=== PATIENT | male | born 1975 | race Caucasian/White ===

== ENCOUNTER 2016-05-16 10:15 | Emergency (ER) | payer MEDICAID ==
[~2016-05-16] VITALS: Ht 172.7 cm; Wt 67.6 kg
[~2016-05-16 10:15] MED LIST: GEMF600T3 PO; METF-312 PO
[2016-05-16 11:00] LABS: Basophils # (auto) 0 uL; Basophils % (auto) 0.5 % (0.0-2.0); Eosinophils # (auto) 0.2 uL; Eosinophils % (auto) 2.1 % (0.0-7.0); Hematocrit 38.5 % (41.0-53.0); Hemoglobin 12.5 g/dL (13.5-17.5); Lymphocytes # (auto) 2.5 uL; Lymphocytes % (auto) 25.8 % (10.0-50.0); Mean Corpuscular Hemoglobin 27.8 pg (28.0-32.0); Mean Corpuscular Hgb Conc. 32.6 g/dL (32.0-36.0); Mean Corpuscular Volume 85.2 fL (80.0-100.0); Mean Platelet Volume 7.3 fL (7.4-10.4); Monocytes # (auto) 0.5 uL; Monocytes % (auto) 5.3 % (0.0-12.0); Neutrophils # (auto) 6.4 uL; Neutrophils % (auto) 66.3 % (37.0-80.0); Platelet Count (auto) 375 10^3/uL (140-450); Red Cell Distribution Width 14.2 % (11.6-16.0); White Blood Cell 9.6 10^3/uL (4.4-10.8)
[2016-05-16 11:21] LABS: BUN/Creatinine Ratio 12.7; Bilirubin, Total 0.2 mg/dL (0.2-1.0); Calcium 9.7 mg/dL (8.5-10.1); Total Protein 9.2 g/dL (6.4-8.2)
[2016-05-16] MEDS ORDERED: METOCLOPRAMIDE HCL 5MG/ml INJ 2ml VIAL IV ONE (18:00)
[2016-05-16] MEDS ORDERED: KETOROLAC TROMETH 30 MG/ML 1ML VIAL IV ONE (18:00)
[2016-05-16] MEDS ORDERED: VANCOMYCIN 1GM/250ML D5W 250 ML IV ONE (19:00)
[2016-05-16] MEDS ORDERED: PIPERACILLIN-TAZOB 3.375GM 100 ML IV ONE (19:00)
[2016-05-17 00:48] VITALS: BP 105/61
== END 2016-05-17 01:10 | disposition home or self-care (01) ==
LOC: ER 10:15
DX: M46.46 Discitis, unspecified, lumbar region (principal); E11.65 Type 2 diabetes mellitus with hyperglycemia; F17.210 Nicotine dependence, cigarettes, uncomplicated; E78.5 Hyperlipidemia, unspecified; E11.69 Type 2 diabetes mellitus with other specified complication; M86.9 Osteomyelitis, unspecified; F32.9 Major depressive disorder, single episode, unspecified
CPT/HCPCS: 36415; 72131; 80053; 85025; 85049; 87040; 96365; 96366; 96367; 96375; 99285; J1885; J2543; J2765; J3370

== ENCOUNTER 2016-06-25 20:45 | Emergency (ER) | payer MEDICAID ==
[~2016-06-25] VITALS: Ht 177.8 cm; Wt 72.6 kg
[2016-06-25] MEDS ORDERED: SODIUM CHLORIDE 0.9% 1,000 ML IV ONE (22:59)
[2016-06-25] MEDS ORDERED: MECLIZINE HCL 25 MG TAB PO ONE (23:00)
[2016-06-25 23:58] LABS: Basophils # (auto) 0.2 uL; Basophils % (auto) 1.8 % (0.0-2.0); Eosinophils # (auto) 0.4 uL; Eosinophils % (auto) 3.5 % (0.0-7.0); Hematocrit 38.3 % (41.0-53.0); Lymphocytes # (auto) 3.7 uL; Lymphocytes % (auto) 34.7 % (10.0-50.0); Mean Corpuscular Hemoglobin 29.4 pg (28.0-32.0); Mean Corpuscular Hgb Conc. 33.9 g/dL (32.0-36.0); Mean Corpuscular Volume 86.6 fL (80.0-100.0); Mean Platelet Volume 8.1 fL (7.4-10.4); Monocytes # (auto) 0.8 uL; Monocytes % (auto) 7.3 % (0.0-12.0); Neutrophils # (auto) 5.5 uL; Neutrophils % (auto) 52.7 % (37.0-80.0); Platelet Count (auto) 272 10^3/uL (140-450); Red Cell Distribution Width 15.2 % (11.6-16.0); White Blood Cell 10.6 10^3/uL (4.4-10.8)
[2016-06-26] MEDS ORDERED: HYDROcodone-ACET 7.5/325MG TAB PO ONE
[2016-06-26 00:19] LABS: Albumin 3.5 g/dL (3.4-5.0); BUN/Creatinine Ratio 17.4; Calcium 8.5 mg/dL (8.5-10.1); Magnesium 2.5 mg/dL (1.6-2.6)
[2016-06-26 00:21] LABS: Bilirubin, Total 0.2 mg/dL (0.2-1.0); Total Protein 7.5 g/dL (6.4-8.2)
[2016-06-26 03:08] VITALS: BP 107/70
== END 2016-06-26 04:28 | disposition home or self-care (01) ==
LOC: EDBD 20:45 → ER 20:59
DX: R42 Dizziness and giddiness (principal); E11.9 Type 2 diabetes mellitus without complications; E78.5 Hyperlipidemia, unspecified; F17.210 Nicotine dependence, cigarettes, uncomplicated; M46.28 Osteomyelitis of vertebra, sacral and sacrococcygeal region; Z98.890 Other specified postprocedural states
CPT/HCPCS: 36415; 70450; 80053; 83735; 85025; 93005; 96360; 96361; 99285; J7030; J8597

== ENCOUNTER 2017-11-24 22:09 | Inpatient (IN) | payer MEDICAID ==
[~2017-11-24] VITALS: Ht 172.7 cm; Wt 70.7 kg
[~2017-11-24 22:09] MED LIST changes: +ATOR40TA52 PO; -GEMF600T3 PO; +HYDR-4072 PO; -METF-312 PO; +METF-370 PO
[2017-11-24 22:53] LABS: Basophils # (auto) 0.1 uL; Basophils % (auto) 0.9 % (0.0-2.0); Eosinophils # (auto) 0.4 uL; Eosinophils % (auto) 5.1 % (0.0-7.0); Hematocrit 43.3 % (41.0-53.0); Hemoglobin 14.8 g/dL (13.5-17.5); Lymphocytes % (auto) 34.2 % (10.0-50.0); Mean Corpuscular Hgb Conc. 34.3 g/dL (32.0-36.0); Mean Corpuscular Volume 93.3 fL (80.0-100.0); Monocytes # (auto) 0.6 uL; Monocytes % (auto) 7.2 % (0.0-12.0); Neutrophils # (auto) 4.5 uL; Neutrophils % (auto) 52.6 % (37.0-80.0); Platelet Count (auto) 193 10^3/uL (140-450); Red Blood Cells 4.64 10^6/uL (4.5-5.90); White Blood Cell 8.6 10^3/uL (4.4-10.8)
[2017-11-24 23:01] LABS: Alanine Aminotransferase 35 U/L (16-61); Albumin 3.6 g/dL (3.4-5.0); Anion Gap 7 (5-15); Aspartate Aminotransferase 15 U/L (15-37); BUN/Creatinine Ratio 13.2; Blood Urea Nitrogen 10 mg/dL (7-18); Carbon Dioxide 26 mmol/L (21-32); Chloride 111 mmol/L (98-107); GFR African American 143 mL/min; GFR Non-African American 118 mL/min; Glucose 127 mg/dL (74-106); Potassium 3.6 mmol/L (3.5-5.1); Sodium 144 mmol/L (136-145)
[2017-11-24 23:06] LABS: Alkaline Phosphatase 75 U/L (45-117); Bilirubin, Total 0.3 mg/dL (0.2-1.0); Total Protein 6.9 g/dL (6.4-8.2)
[2017-11-25 01:21] LABS: Urine WBC None Seen /hpf (0 - 3)
[2017-11-25 01:38] LABS: Urine Bacteria NONE SEEN /hpf (None Seen); Urine Blood Negative /uL (Negative); Urine Mucus FEW (None Seen); Urine Specific Gravity 1.019 (1.001-1.035)
[2017-11-25] MEDS ORDERED: NITROGLYCERIN 0.4 MG SL TAB SL PRN (05:00)
[2017-11-25] MEDS ORDERED: MORPHINE SULF INJ 2 MG/ML SYRINGE 1ML IV PRN (05:00)
[2017-11-25] MEDS ORDERED: HYDROcodone-ACET 5/325MG TAB PO PRN (06:00)
[2017-11-25] MEDS ORDERED: ACETAMINOPHEN 500 MG TAB PO PRN (06:00)
[2017-11-25 07:18] LABS: Basophils # (auto) 0.1 uL; Basophils % (auto) 0.8 % (0.0-2.0); Eosinophils # (auto) 0.4 uL; Hematocrit 40.9 % (41.0-53.0); Hemoglobin 14.1 g/dL (13.5-17.5); Lymphocytes # (auto) 2.8 uL; Mean Corpuscular Hgb Conc. 34.6 g/dL (32.0-36.0); Mean Corpuscular Volume 92.5 fL (80.0-100.0); Monocytes # (auto) 0.6 uL; Monocytes % (auto) 7.9 % (0.0-12.0); Neutrophils # (auto) 3.4 uL; Neutrophils % (auto) 47.3 % (37.0-80.0); Nucleated Red Blood Cells % 0.2 %; Platelet Count (auto) 172 10^3/uL (140-450); Red Blood Cells 4.42 10^6/uL (4.5-5.90); Red Cell Distribution Width 13.9 % (11.8-14.3); White Blood Cell 7.2 10^3/uL (4.4-10.8)
[2017-11-25] MEDS: metFORMIN HYDROCHLORIDE 500 MG TAB PO SCH ×2 (07:30→18:00)
[2017-11-25 07:40] LABS: BUN/Creatinine Ratio 12.7; Calcium 8.1 mg/dL (8.5-10.1); Potassium 3.8 mmol/L (3.5-5.1)
[2017-11-25] MEDS: CLOPIDOGREL BISULFATE 75 MG TAB PO SCH (10:02)
[2017-11-25] MEDS: METOPROLOL TARTRATE 25 MG TAB PO SCH ×2 (10:02→21:21)
[2017-11-25 18:00] VITALS: BP 106/68
[2017-11-25 22:00] VITALS: BP 106/65
[2017-11-25] MEDS ORDERED: ATORVASTATIN 20 MG TAB PO SCH (22:00)
[2017-11-26 05:00] VITALS: BP 93/54
[2017-11-26] MEDS: metFORMIN HYDROCHLORIDE 500 MG TAB PO SCH (07:00)
[2017-11-26 09:00] VITALS: BP 104/64
[2017-11-26] MEDS: METOPROLOL TARTRATE 25 MG TAB PO SCH (10:00)
[2017-11-26] MEDS: CLOPIDOGREL BISULFATE 75 MG TAB PO SCH (10:00)
[2017-11-26 11:53] VITALS: BP 104/64
[2017-11-26 13:18] VITALS: BP 94/54
[2017-11-26 13:20] VITALS: BP 108/77
== END 2017-11-26 12:50 | disposition home or self-care (01) | DRG 198 ==
LOC: ER 22:09 → TELE 22:10 → TELE-EAST 11-25 17:38
PROVIDERS: ADMIT Nurse Practitioner Family; ATTEND Internal Medicine
DX: R07.89 Other chest pain (principal); I25.2 Old myocardial infarction; I11.9 Hypertensive heart disease without heart failure; E11.9 Type 2 diabetes mellitus without complications; F17.210 Nicotine dependence, cigarettes, uncomplicated; I25.10 Atherosclerotic heart disease of native coronary artery without angina pectoris; E78.5 Hyperlipidemia, unspecified; I48.91 Unspecified atrial fibrillation; Z98.61 Coronary angioplasty status; Z79.84 Long term (current) use of oral hypoglycemic drugs
CPT/HCPCS: 36415; 71045; 80048; 80053; 81001; 82962; 83880; 84443; 84484; 85025; 87081; 93005; 94761

== ENCOUNTER → 2018-09-04 | Outpatient (CLI) | payer MEDICAID | END | disposition home or self-care (01) | LOC: Rad HDHVI 07:53 | PROVIDERS: ATTEND Internal Medicine | DX: I25.10 Atherosclerotic heart disease of native coronary artery without angina pectoris (principal); R00.2 Palpitations; I10 Essential (primary) hypertension | CPT/HCPCS: 93306 ==

== ENCOUNTER → 2018-10-06 | Outpatient (CLI) | payer MEDICAID ==
[~2018-10-06] VITALS: Ht 172.7 cm; Wt 70.3 kg
== END | disposition home or self-care (01) ==
LOC: Rad HDHVI 07:52
PROVIDERS: ATTEND Internal Medicine
DX: I25.10 Atherosclerotic heart disease of native coronary artery without angina pectoris (principal); I10 Essential (primary) hypertension; R00.2 Palpitations; E78.5 Hyperlipidemia, unspecified
CPT/HCPCS: 78452; 93017; 96374; A9500

== ENCOUNTER 2019-07-30 15:05 | Emergency (ER) | payer MEDICAID ==
[~2019-07-30] VITALS: Ht 172.7 cm; Wt 74.8 kg
[2019-07-30] MEDS ORDERED: cefTRIAXone W LIDOCAINE 1 GM IM IM ONE (15:15)
[2019-07-30 15:19] VITALS: BP 161/84
[2019-07-30] MEDS ORDERED: cefTRIAXone SOD 1,000 MG VL ONE (15:19)
== END 2019-07-30 16:52 | disposition home or self-care (01) ==
LOC: ER 15:07
DX: J40 Bronchitis, not specified as acute or chronic (principal); E11.9 Type 2 diabetes mellitus without complications; E78.5 Hyperlipidemia, unspecified; I25.2 Old myocardial infarction; F17.210 Nicotine dependence, cigarettes, uncomplicated; Z98.61 Coronary angioplasty status
CPT/HCPCS: 71045; 87070; 87804; 87880; 96372; 99284; J0696

== ENCOUNTER → 2019-12-08 | Outpatient (CLI) | payer MEDICAID | END | disposition home or self-care (01) | LOC: Rad HDHVI 09:02 | PROVIDERS: ATTEND Internal Medicine Cardiovascular Disease | DX: I49.9 Cardiac arrhythmia, unspecified (principal); R07.9 Chest pain, unspecified; R00.2 Palpitations | CPT/HCPCS: 93306 ==

== ENCOUNTER 2020-02-16 07:35 | Emergency (ER) | payer MEDICAID ==
[~2020-02-16] VITALS: Ht 172.7 cm; Wt 74.8 kg
[2020-02-16] MEDS ORDERED: CLINDAMYCIN 600MG IV 50 ML IV ONE (08:45)
[2020-02-16 09:07] VITALS: BP 129/77
== END 2020-02-16 09:26 | disposition home or self-care (01) ==
LOC: ER 07:35
DX: K04.7 Periapical abscess without sinus (principal); K02.9 Dental caries, unspecified; I25.2 Old myocardial infarction; E11.9 Type 2 diabetes mellitus without complications; I48.91 Unspecified atrial fibrillation; F17.210 Nicotine dependence, cigarettes, uncomplicated; Z86.73 Personal history of transient ischemic attack (TIA), and cerebral infarction without residual deficits; Z98.61 Coronary angioplasty status
CPT/HCPCS: 82962; 96365; 99284; J3490

== ENCOUNTER → 2020-03-16 | Outpatient (CLI) | payer MEDICAID ==
[~2020-03-16] VITALS: Ht 172.7 cm; Wt 74.8 kg
== END | disposition home or self-care (01) ==
LOC: Rad HDHVI 13:30
PROVIDERS: ATTEND Internal Medicine
DX: E11.9 Type 2 diabetes mellitus without complications (principal)
CPT/HCPCS: 78452; 93017; 96374; A9500

== ENCOUNTER 2021-03-19 11:44 | Emergency (ER) | payer MEDICAID ==
[~2021-03-19] VITALS: Ht 172.7 cm; Wt 73.5 kg
[2021-03-19 17:20] VITALS: BP 139/79
== END 2021-03-19 17:25 | disposition home or self-care (01) ==
LOC: ER 11:44
DX: U07.1 COVID-19 (principal); J06.9 Acute upper respiratory infection, unspecified; E11.9 Type 2 diabetes mellitus without complications; E78.5 Hyperlipidemia, unspecified; I25.2 Old myocardial infarction
CPT/HCPCS: 36415; 71046; 87426

== ENCOUNTER 2022-02-12 13:30 | Inpatient (IN) | payer MEDICAID ==
[~2022-02-12] VITALS: Ht 172.7 cm; Wt 72.0 kg
[2022-02-12 14:00] LABS: Hematocrit 47.4 % (41.0-53.0); Hemoglobin 16.2 g/dL (13.5-17.5); Mean Corpuscular Hemoglobin 31.8 pg (28.0-32.0); Mean Corpuscular Hgb Conc. 34.2 g/dL (32.0-36.0); Mean Corpuscular Volume 92.9 fL (80.0-100.0); Red Cell Distribution Width 13.4 % (11.8-14.3); White Blood Cell 8.8 10^3/uL (4.4-10.8)
[2022-02-12 14:15] LABS: Band Neutrophils % (manual) 0; Basophils % (manual) 0 (0.0-2.0); Blast Cells 0; Metamyelocytes % 0; Myelocytes % 0; Promyelocytes % 0; Reactive Lymphocytes 0
[2022-02-12 14:28] LABS: Urine Bacteria NONE SEEN /hpf (None Seen); Urine Blood Negative /uL (Negative); Urine Mucus FEW (None Seen); Urine Specific Gravity 1.021 (1.001-1.035); Urine WBC 1 /hpf (0 - 3)
[2022-02-12 14:43] LABS: Eosinophils % (manual) 2 (0-7); Lymphocytes % (manual) 26 (10.0-50.0); Monocytes % (manual) 8 (0-12)
[2022-02-12 15:33] LABS: Alanine Aminotransferase 23 U/L (16-61); Alkaline Phosphatase 71 U/L (45-117); Anion Gap 7 (5-15); Aspartate Aminotransferase 17 U/L (15-37); BUN/Creatinine Ratio 11.2; Blood Urea Nitrogen 11 mg/dL (7-18); Calcium 8.7 mg/dL (8.5-10.1); Carbon Dioxide 27 mmol/L (21-32); Chloride 110 mmol/L (98-107); GFR African American 105 mL/min; GFR Non-African American 87 mL/min; Glucose 173 mg/dL (74-106); Potassium 3.9 mmol/L (3.5-5.1); Sodium 144 mmol/L (136-145)
[2022-02-12 15:34] LABS: Albumin 3.8 g/dL (3.4-5.0); Bilirubin, Total 0.8 mg/dL (0.2-1.0); Total Protein 6.9 g/dL (6.4-8.2)
[2022-02-12] MEDS ORDERED: MORPHINE SULFATE INJ 2 MG/ml SYRG IV PRN (21:30)
[2022-02-12] MEDS ORDERED: ACETAMINOPHEN 325 MG TAB PO PRN (21:30)
[2022-02-12] MEDS ORDERED: ONDANSETRON HCL 4 MG/2 ML VIAL IV PRN (21:30)
[2022-02-12] MEDS ORDERED: TEMAZEPAM 15 MG CAP PO PRN (21:30)
[2022-02-12] MEDS ORDERED: DEXTROSE (50%) 50ML SYRG IV PRN (21:30)
[2022-02-12] MEDS ORDERED: NITROGLYCERIN 0.4 MG SL TAB SL PRN (21:30)
[2022-02-12] MEDS: ATORVASTATIN 20 MG TAB PO SCH (22:58)
[2022-02-12 23:19] LABS: BUN/Creatinine Ratio 13.4; Calcium 8.8 mg/dL (8.5-10.1); Potassium 4.1 mmol/L (3.5-5.1)
[2022-02-12 23:52] VITALS: BP 111/69
[2022-02-13] VITALS (8 sets, daily range): BP systolic 103–135; BP diastolic 59–85
[2022-02-13] MEDS: ACCU-CHEK COMFORT CURVE STRIP VI SCH ×5 (00:21→23:50)
[2022-02-13] MEDS ORDERED: CLOP75TA70 PO (01:05)
[2022-02-13] MEDS ORDERED: TAMS0.4C36 PO (01:05)
[2022-02-13] MEDS ORDERED: SEMA7TAB (01:05)
[2022-02-13] MEDS ORDERED: EZET-10 PO (01:05)
[2022-02-13 05:24] LABS: Basophils # (auto) 0.1 10 ^3/uL (0-0.2); Eosinophils # (auto) 0.3 10 ^3/uL (0-0.8); Eosinophils % (auto) 5.1 % (0.0-7.0); Hematocrit 42.2 % (41.0-53.0); Hemoglobin 14.3 g/dL (13.5-17.5); Lymphocytes # (auto) 2.8 10 ^3/uL (0.4-5.4); Lymphocytes % (auto) 44.4 % (10.0-50.0); Mean Corpuscular Hemoglobin 31.2 pg (28.0-32.0); Mean Corpuscular Hgb Conc. 33.9 g/dL (32.0-36.0); Mean Corpuscular Volume 92.2 fL (80.0-100.0); Monocytes # (auto) 0.5 10 ^3/uL (0-1.3); Monocytes % (auto) 8.1 % (0.0-12.0); Neutrophils # (auto) 2.6 10 ^3/uL (1.6-8.6); Neutrophils % (auto) 41.4 % (37.0-80.0); Nucleated Red Blood Cells % 0.1 %; Red Blood Cells 4.58 10^6/uL (4.5-5.90); White Blood Cell 6.4 10^3/uL (4.4-10.8)
[2022-02-13] MEDS: InsuLIN REG 1unit/0.01ml Soln (100units/ml) SC SCH ×5 (06:00→23:53)
[2022-02-13] MEDS: ASPirin 81 mg TAB PO SCH (09:57)
[2022-02-13] MEDS: PANTOPRAZOLE 40 MG TAB PO SCH (09:57)
[2022-02-13] MEDS: CLOPIDOGREL BISULFATE 75 MG TAB PO SCH (09:57)
[2022-02-13] MEDS ORDERED: ADENOSINE 61 MG in GIVE UN-DILUTED 0 ML IV STA (10:27)
[2022-02-13] MEDS: ATORVASTATIN 20 MG TAB PO SCH (21:08)
[2022-02-14 04:54] VITALS: BP 110/66
[2022-02-14] MEDS: ACCU-CHEK COMFORT CURVE STRIP VI SCH ×2 (05:39→11:56)
[2022-02-14] MEDS: InsuLIN REG 1unit/0.01ml Soln (100units/ml) SC SCH ×2 (05:47→11:57)
[2022-02-14] MEDS: ASPirin 81 mg TAB PO SCH (10:07)
[2022-02-14] MEDS: CLOPIDOGREL BISULFATE 75 MG TAB PO SCH (10:07)
[2022-02-14] MEDS: PANTOPRAZOLE 40 MG TAB PO SCH (10:07)
[2022-02-14 12:27] VITALS: BP 110/66
[2022-02-14 15:43] VITALS: BP 110/66
== END 2022-02-14 16:14 | disposition home or self-care (01) | DRG 198 ==
LOC: ER 13:30 → TELE 21:20 → TELE-WESTW 23:48
PROVIDERS: ADMIT Nurse Practitioner; ATTEND Internal Medicine
DX: R07.9 Chest pain, unspecified (principal); I25.2 Old myocardial infarction; E11.51 Type 2 diabetes mellitus with diabetic peripheral angiopathy without gangrene; E78.5 Hyperlipidemia, unspecified; I48.91 Unspecified atrial fibrillation; N40.0 Benign prostatic hyperplasia without lower urinary tract symptoms; Z20.822 Contact with and (suspected) exposure to COVID-19; F17.210 Nicotine dependence, cigarettes, uncomplicated; I10 Essential (primary) hypertension; Z82.49 Family history of ischemic heart disease and other diseases of the circulatory system; Z83.3 Family history of diabetes mellitus; Z95.5 Presence of coronary angioplasty implant and graft
CPT/HCPCS: 36415; 71045; 78452; 80048; 80053; 80061; 81001; 82962; 83036; 83735; 84443; 84484; 85007; 85025; 85027; 85379; 87426; 93005; 93017; 93306; G0378; J0153; J1815

== ENCOUNTER 2022-03-28 12:03 | Inpatient (IN) | payer MEDICAID ==
[~2022-03-28] VITALS: Ht 172.7 cm; Wt 75.9 kg
[~2022-03-28 12:03] MED LIST changes: +CLOP75TA70 PO; +EZET-10 PO; +SEMA7TAB; +TAMS0.4C36 PO
[2022-03-28 12:50] LABS: Basophils # (auto) 0.1 10 ^3/uL (0-0.2); Eosinophils # (auto) 0.1 10 ^3/uL (0-0.8); Eosinophils % (auto) 1.6 % (0.0-7.0); Hematocrit 47.6 % (41.0-53.0); Lymphocytes # (auto) 2.4 10 ^3/uL (0.4-5.4); Lymphocytes % (auto) 28.4 % (10.0-50.0); Mean Corpuscular Hemoglobin 31.3 pg (28.0-32.0); Mean Corpuscular Hgb Conc. 33.5 g/dL (32.0-36.0); Mean Corpuscular Volume 93.3 fL (80.0-100.0); Monocytes # (auto) 0.5 10 ^3/uL (0-1.3); Monocytes % (auto) 6.1 % (0.0-12.0); Neutrophils # (auto) 5.3 10 ^3/uL (1.6-8.6); Neutrophils % (auto) 62.9 % (37.0-80.0); Nucleated Red Blood Cells % 0.1 %; Red Cell Distribution Width 13.8 % (11.8-14.3); White Blood Cell 8.5 10^3/uL (4.4-10.8)
[2022-03-28 13:21] LABS: INR 1.02 (0.9-1.15); Partial Thromboplastin Time 25.9 sec (24.6-33.4)
[2022-03-28 13:27] LABS: Albumin 3.9 g/dL (3.4-5.0); BUN/Creatinine Ratio 15.3; Bilirubin, Total 0.8 mg/dL (0.2-1.0); Calcium 9.3 mg/dL (8.5-10.1); Potassium 3.9 mmol/L (3.5-5.1); Total Protein 6.6 g/dL (6.4-8.2)
[2022-03-28] MEDS ORDERED: HYDROcodone-ACET 5/325MG TAB PO PRN (16:45)
[2022-03-28] MEDS ORDERED: MORPHINE SULFATE INJ 2 MG/ml SYRG IV PRN (16:45)
[2022-03-28] MEDS ORDERED: DEXTROSE (50%) 50ML SYRG IV PRN (16:45)
[2022-03-28] MEDS ORDERED: ONDANSETRON HCL 4 MG/2 ML VIAL IV PRN (16:45)
[2022-03-28] MEDS ORDERED: DOCUSATE SOD 100 MG CAP PO PRN (16:45)
[2022-03-28] MEDS ORDERED: NITROGLYCERIN 0.4 MG SL TAB SL PRN (16:45)
[2022-03-28] MEDS ORDERED: ACETAMINOPHEN 325 MG TAB PO PRN (16:45)
[2022-03-28] MEDS ORDERED: POTASSIUM CHL 20 Meq TABLET PO ONE (17:00)
[2022-03-28] MEDS: InsuLIN REG 1unit/0.01ml Soln (100units/ml) SC SCH ×2 (18:31→23:00)
[2022-03-28] MEDS: ACCU-CHEK COMFORT CURVE STRIP VI SCH ×2 (18:33→23:00)
[2022-03-28] MEDS: MAGNESIUM SULFATE 1GM/100ML 100 ML IV SCH ×2 (18:44→19:52)
[2022-03-28 22:58] VITALS: BP 123/66
[2022-03-28] MEDS: ATORVASTATIN 20 MG TAB PO SCH (23:10)
[2022-03-29 05:00] VITALS: BP 102/51
[2022-03-29 05:53] LABS: Basophils # (auto) 0.1 10 ^3/uL (0-0.2); Eosinophils # (auto) 0.3 10 ^3/uL (0-0.8); Eosinophils % (auto) 3.8 % (0.0-7.0); Hematocrit 44.2 % (41.0-53.0); Hemoglobin 14.7 g/dL (13.5-17.5); Lymphocytes # (auto) 2.5 10 ^3/uL (0.4-5.4); Mean Corpuscular Hemoglobin 31.5 pg (28.0-32.0); Mean Corpuscular Hgb Conc. 33.3 g/dL (32.0-36.0); Mean Corpuscular Volume 94.5 fL (80.0-100.0); Monocytes # (auto) 0.5 10 ^3/uL (0-1.3); Monocytes % (auto) 7.7 % (0.0-12.0); Neutrophils # (auto) 3.6 10 ^3/uL (1.6-8.6); Neutrophils % (auto) 51.5 % (37.0-80.0); Nucleated Red Blood Cells % 0.2 %; Red Blood Cells 4.68 10^6/uL (4.5-5.90); Red Cell Distribution Width 13.3 % (11.8-14.3); White Blood Cell 6.9 10^3/uL (4.4-10.8)
[2022-03-29 06:33] LABS: Albumin 3.4 g/dL (3.4-5.0); BUN/Creatinine Ratio 21.1; Bilirubin, Total 0.6 mg/dL (0.2-1.0); Calcium 8.6 mg/dL (8.5-10.1); Potassium 4.4 mmol/L (3.5-5.1); Total Protein 5.6 g/dL (6.4-8.2)
[2022-03-29] MEDS: ACCU-CHEK COMFORT CURVE STRIP VI SCH ×4 (06:43→22:50)
[2022-03-29] MEDS: InsuLIN REG 1unit/0.01ml Soln (100units/ml) SC SCH ×4 (06:45→22:51)
[2022-03-29 08:55] VITALS: BP_SYST 106; BP_SYST 110; BP_DIAS 63; BP_DIAS 81
[2022-03-29] MEDS: EZETIMIBE 10 MG PO SCH (10:00)
[2022-03-29] MEDS: TAMSULOSIN HYDROCHLORIDE 0.4 MG CAP PO SCH (10:27)
[2022-03-29] MEDS: PANTOPRAZOLE 40 MG/10 ML VIAL INJ IV SCH (10:27)
[2022-03-29] MEDS: CLOPIDOGREL BISULFATE 75 MG TAB PO SCH (10:28)
[2022-03-29 13:00] VITALS: BP 118/65
[2022-03-29 17:00] VITALS: BP 116/62
[2022-03-29 20:00] VITALS: BP 115/67
[2022-03-29 22:00] VITALS: BP 115/67
[2022-03-29] MEDS: ATORVASTATIN 20 MG TAB PO SCH (22:52)
[2022-03-30] VITALS (11 sets, daily range): BP systolic 100–122; BP diastolic 51–72
[2022-03-30] MEDS: InsuLIN REG 1unit/0.01ml Soln (100units/ml) SC SCH ×4 (06:24→22:13)
[2022-03-30] MEDS: ACCU-CHEK COMFORT CURVE STRIP VI SCH ×4 (07:00→22:10)
[2022-03-30] MEDS: EZETIMIBE 10 MG PO SCH (09:43)
[2022-03-30] MEDS: CLOPIDOGREL BISULFATE 75 MG TAB PO SCH (10:03)
[2022-03-30] MEDS: TAMSULOSIN HYDROCHLORIDE 0.4 MG CAP PO SCH (10:03)
[2022-03-30] MEDS: PANTOPRAZOLE 40 MG/10 ML VIAL INJ IV SCH (10:03)
[2022-03-30] MEDS ORDERED: ANGIOMAX 250 MG VIAL IV ONE (15:38)
[2022-03-30] MEDS ORDERED: MIDAZOLAM HCL 2MG/2ML 2ml VIAL (1mg/ml) ONE ×2 (15:39→16:04)
[2022-03-30] MEDS ORDERED: SODIUM CHL 0.9% 0 ML ONE (15:39)
[2022-03-30] MEDS ORDERED: fentaNYL CITRATE 100 MCG/2 ML VL ONE ×2 (15:39→16:03)
[2022-03-30] MEDS ORDERED: LIDOCAINE 2%HCL (LOCAL ANESTH.) INJ 10ml MDV ONE (15:40)
[2022-03-30] MEDS: ATORVASTATIN 20 MG TAB PO SCH (22:18)
[2022-03-31 05:00] VITALS: BP 94/50
[2022-03-31] MEDS: ACCU-CHEK COMFORT CURVE STRIP VI SCH ×2 (06:40→12:45)
[2022-03-31] MEDS: InsuLIN REG 1unit/0.01ml Soln (100units/ml) SC SCH ×2 (06:43→12:46)
[2022-03-31 08:43] VITALS: BP 117/74
[2022-03-31] MEDS: EZETIMIBE 10 MG PO SCH (09:41)
[2022-03-31] MEDS: PANTOPRAZOLE 40 MG/10 ML VIAL INJ IV SCH (09:41)
[2022-03-31] MEDS: CLOPIDOGREL BISULFATE 75 MG TAB PO SCH (09:42)
[2022-03-31] MEDS: TAMSULOSIN HYDROCHLORIDE 0.4 MG CAP PO SCH (09:42)
[2022-03-31 13:00] VITALS: BP 111/71
== END 2022-03-31 13:30 | disposition home or self-care (01) | DRG 192 ==
LOC: ER 12:03 → TELE 16:42 → TELE-EAST 22:25
PROVIDERS: ADMIT Nurse Practitioner Family; ATTEND Internal Medicine
PROC: 4A023N7 Measurement of Cardiac Sampling and Pressure, Left Heart, Percutaneous Approach (ICD-10-PCS; principal; 2022-03-30)
PROC: 4A033BC Measurement of Arterial Pressure, Coronary, Percutaneous Approach (ICD-10-PCS; 2022-03-30)
PROC: B2111ZZ Fluoroscopy of Multiple Coronary Arteries using Low Osmolar Contrast (ICD-10-PCS; 2022-03-30)
PROC: B2151ZZ Fluoroscopy of Left Heart using Low Osmolar Contrast (ICD-10-PCS; 2022-03-30)
DX: I47.1 Supraventricular tachycardia (principal); I47.20 Ventricular tachycardia, unspecified; E11.9 Type 2 diabetes mellitus without complications; E78.5 Hyperlipidemia, unspecified; I10 Essential (primary) hypertension; I25.10 Atherosclerotic heart disease of native coronary artery without angina pectoris; N40.0 Benign prostatic hyperplasia without lower urinary tract symptoms; F17.210 Nicotine dependence, cigarettes, uncomplicated; I48.91 Unspecified atrial fibrillation; Z20.822 Contact with and (suspected) exposure to COVID-19; I25.2 Old myocardial infarction; Z86.79 Personal history of other diseases of the circulatory system; Z95.5 Presence of coronary angioplasty implant and graft; Z82.49 Family history of ischemic heart disease and other diseases of the circulatory system; Z83.3 Family history of diabetes mellitus; Z79.84 Long term (current) use of oral hypoglycemic drugs
CPT/HCPCS: 36415; 71045; 80053; 82962; 83735; 83880; 84484; 85025; 85610; 85730; 87426; 93005; 93458; 93571; 96365; 96366; 99152; C9113; G0378; J1815; J2001; J2250

== ENCOUNTER 2022-04-02 11:43 | Emergency (ER) | payer MEDICAID ==
[~2022-04-02] VITALS: Ht 175.3 cm; Wt 68.6 kg
[2022-04-02] MEDS ORDERED: KETOROLAC TROMETH 60MG/2ML VIAL IM ONE (14:00)
[2022-04-02 14:44] VITALS: BP 131/96
== END 2022-04-02 16:56 | disposition home or self-care (01) ==
LOC: ER 11:43
DX: S39.012A Strain of muscle, fascia and tendon of lower back, initial encounter (principal); M54.42 Lumbago with sciatica, left side; M54.41 Lumbago with sciatica, right side; I48.91 Unspecified atrial fibrillation; I25.10 Atherosclerotic heart disease of native coronary artery without angina pectoris; E11.9 Type 2 diabetes mellitus without complications; E78.5 Hyperlipidemia, unspecified; F17.210 Nicotine dependence, cigarettes, uncomplicated; Z79.01 Long term (current) use of anticoagulants; Z79.899 Other long term (current) drug therapy; X50.1XXA Overexertion from prolonged static or awkward postures, initial encounter; Y93.89 Activity, other specified; Y92.89 Other specified places as the place of occurrence of the external cause; Y99.8 Other external cause status
CPT/HCPCS: 72100; 96372; 99283; J1885

== ENCOUNTER 2025-01-02 06:53 | Inpatient (IN) | payer MEDICAID, SELFPAY ==
[~2025-01-02] VITALS: Ht 172.7 cm; Wt 71.0 kg
[2025-01-02] VITALS (7 sets, daily range): BP systolic 113–149; BP diastolic 60–71; PULSE 66–140; RESP 16–20; TEMP 98.1–98.2; O2SAT 95–97
[~2025-01-02 06:53] MED LIST changes: -SEMA7TAB; +SEMA7TAB2; -TAMS0.4C36 PO; +TAMS0.4C39 PO
--- NOTE | 2025-01-02 07:06 | ED.PDOC ---
History of Present Illness HPI Comments 49-year-old male presents to the ER with prior medical history of hypertension, AFib, diabetes, CAD, high lipids, [place]: Surgical history of hernia repair, PTCA x3 and a chief complaint of chest pain. Patient reports on have similar symptoms when he had during his [place] when the PTCA were placed. Patient is cur rently on blood thinners and has diaphragmatic breathing. Social history of tobacco use. Denies chills, fever, N/V/D. No other associated symptoms, modifiers, recent injuries or sick contacts present at this time. Time Seen by MD: 07:00 Primary Care Provider: azra Jacob Notes: Nurses Notes, Medications, Allergies Allergies: Coded Allergies: NO KNOWN ALLERGIES (Unverified , 11/24/17) Home Meds Reported Medications Ezetimibe (Ezetimibe) 10 Mg Tab, 1 TAB PO DAILYPRN 02/13/22 Clopidogrel Bisulfate (CLOPIDOGREL) 75 Mg Tab, 1 TAB PO DAILYPRN 02/13/22 Tamsulosin Hcl (Tamsulosin Hcl) 0.4 Mg Cap, 1 CAP PO DAILYPRN 02/13/22 Semaglutide (Rybelsus) 7 Mg Tab 02/13/22 Hydrocodone-Acetaminophen (Hydrocodone/Acetaminophen 10-325 mg) 1 Tab Tab, 1 PO TID PRN for MODERATE PAIN 08/07/17 Atorvastatin Calcium (ATORVASTATIN CALCIUM) 40 Mg Tab, 1 TAB PO DAILY, #30 TAB 5 Refills 08/07/17 Metformin Hydrochloride (Metformin Hcl) 500 Mg Tab, 500 MG PO IBID for 30 Days, MG 09/28/13 Information Source: Patient Mode of Arrival: Ambulatory Severity: Moderate Timing: Came on: Suddenly Duration: Since onset Prehospital treatment: None Past Medical History PAST MEDICAL HISTORY: AFIB, CAD, DM, High Lipids, HTN, [place] Surgical History: Hernia Repair, PTCA (X3) Family History Family History: Reviewed,noncontributory to illness, Unknown Social History Smoker: Cigarettes Alcohol: Denies ETOH Use Drugs: Denies Drug Use Lives In: Home Constitutional: denies: chills, diaphoresis, fatigue, fever, malaise, sweats, weakness, others EENTM: denies: blurred vision, double vision, ear bleeding, ear discharge, ear drainage, ear pain, ear ringing, eye pain, eye redness, hearing loss, mouth pain, mouth swelling, nasal discharge, nose bleeding, nose congestion, nose pain, photophobia, tearing, throat pain, throat swelling, voice changes, others Respiratory: reports: shortness of breath, SOB with excertion; denies: cough, hemoptysis, orthopnea, SOB at rest, stridor, wheezing, others Cardiovascular: reports: chest pain; denies: dizzy spells, diaphoresis, Dyspnea on exertion, edema, irregular heart beat, left arm pain, lightheadedness, palpitations, PND, syncope, others Gastrointestinal: denies: abdomen distended, abdominal pain, blood streaked bowels, constipated, diarrhea, dysphagia, difficulty swallowing, hematemesis, melena, nausea, poor appetite, poor fluid intake, rectal bleeding, rectal pain, vomiting, others Genitourinary: denies: burning, dysuria, flank pain, frequency, hematuria, incontinence, penile discharge, penile sore, pain, testicle pain, testicle swelling, urgency, others Neurological: denies: dizziness, fainting, headache, left sided numbness, left sided weakness, numbness, paresthesia, pre-existing deficit, right sided numbness, right sided weakness, seizure, speech problems, tingling, tremors, weakness, others Musculoskeletal: denies: back pain, gout, joint pain, joint swelling, muscle pain, muscle stiffness, neck pain, others Integumetry: denies: bruises, change in color, change in hair/nails, dryness, laceration, lesions, lumps, rash, wounds, others Allergic/Immunocompromised: denies: Difficulty Healing, Frequent Infections, Hives, Itching, others Hematologic/Lymphatic: denies: anemia, blood clots, easy bleeding, easy bruising, swollen glands, others Endocrine: denies: excessive hunger, excessive sweating, excessive thirst, excessive urination, flushing, intolerance to cold, intolerance to heat, unexplained weight gain, unexplained weight loss, others Psychiatric: denies: anxiety, bipolar disorder, depression, hopeless, panic dis order, schizophrenia, sleepless, suicidal, others All Other Systems: Reviewed and Negative Physical Exam General Appearance: Moderate Distress, Normal HEENT: Normal ENT Inspection, Pharynx Normal, TMs Normal Neck: Full Range of Motion, Non-Tender, Normal, Normal Inspection Respiratory: Chest Non-Tender, Lungs Clear, No Accessory Muscle Use, No Respiratory Distress, Normal Breath Sounds Cardiovascular: Irregular, No Edema, No JVD, No Murmur, No Gallop, Normal Peripheral Pulses Breast Exam: Deferred Gastrointestinal: No Organomegaly, Non Tender, No Pulsatile Mass, Normal Bowel Sounds, Soft Genitalia: Deferred Pelvic: Deferred Rectal: Deferred Extremities: No calf tenderness, Normal capillary refill, Normal inspection, Normal range of motion, Non-tender, No pedal edema Musculoskeletal : Apperance: Normal Neurologic: Alert, sterile proc tech II-XII nml as Tested, No Motor Deficits, Normal Affect, Normal Mood, No Sensory Deficits Cerebellar Function: Normal Reflexes: Normal Skin: Dry, Normal Color, Warm Peripheral Pulses: 3+ Radial (R), 3+ Radial (L) Lymphatic: No Adenopathy Was a procedure done? Was a procedure done?: No EKG EKG : Pulse Rate (adult): 148 [place]: Normal Cardiac Rhythm: Afib Block: None Hypertrophy: None ST: Normal Differential Dx Considerations may include: Atrial fibrillation Electrolyte imbalance X-Ray, Labs, Meds, VS Vital Signs Date Time Temp Pulse Resp B/P (MAP) Pulse Ox O2 Delivery O2 Flow Rate FiO2 01/02/25 10:29 77 01/02/25 09:00 140 20 96 Room Air* 0 21 01/02/25 09:00 97.7 140 20 137/73 (94) 96 97.7 01/02/25 07:57 152 01/02/25 07:14 97.7 145 18 148/85 95 97.7 01/02/25 07:06 148 01/02/25 06:54 148 Lab Test 01/02/25 09:55 01/02/25 08:29 01/02/25 07:04 Range/Units Troponin I High Sensitivity 123 *H 88 *H 50 </=54 ng/L White Blood Count 8.6 4.4-10.8 10^3/uL Red Blood Count 4.83 4.5-5.90 10^6/uL Hemoglobin 15.6 13.5-17.5 g/dL Hematocrit 44.3 41.0-53.0 % Mean Corpuscular Volume 91.8 80.0-100.0 fL Mean Corpuscular Hemoglobin 32.3 H 28.0-32.0 pg Mean Corpuscular Hemoglobin Concent 35.2 32.0-36.0 g/dL Red Cell Distribution Width 12.5 11.8-14.3 % Platelet Count 195 140-450 10^3/uL Mean Platelet Volume 9.0 6.9-10.8 fL Neutrophils (%) (Auto) 50.2 37.0-80.0 % Lymphocytes (%) (Auto) 33.9 10.0-50.0 % Monocytes (%) (Auto) 11.9 0.0-12.0 % Eosinophils (%) (Auto) 3.2 0.0-7.0 % Basophils (%) (Auto) 0.8 0.0-2.0 % Neutrophils # (Auto) 4.3 1.6-8.6 10 ^3/uL Lymphocytes # (Auto) 2.9 0.4-5.4 10 ^3/uL Monocytes # (Auto) 1.0 0-1.3 10 ^3/uL Eosinophils # (Auto) 0.3 0-0.8 10 ^3/uL Basophils # (Auto) 0.1 0-0.2 10 ^3/uL Nucleated Red Blood Cells 0.0 % Sodium Level 142 136-145 mmol/L Potassium Level 4.1 3.5-5.1 mmol/L Chloride Level 106 98-107 mmol/L Carbon Dioxide Level 20 20-31 mmol/L Anion Gap 16 H 5-15 Blood Urea Nitrogen 14 9-23 mg/dL Creatinine 1.02 0.700-1.30 mg/dL Glomerular Filtration Rate Calc 89 >90 mL/min BUN/Creatinine Ratio 13.7 10.0-20.0 Serum Glucose 239 H 74-106 mg/dL Calcium Level 9.6 8.7-10.4 mg/dL Total Bilirubin 1.1 H 0.2-1.0 mg/dL Aspartate Amino Transferase (AST) 20 13-40 U/L Alanine Aminotransferase (ALT) 29 7-40 U/L Alkaline Phosphatase 90 46-116 U/L Total Protein 6.3 5.7-8.2 g/dL Albumin 4.1 3.2-4.8 g/dL Beta-Hydroxybutyric Acid 2.520 H < 0.4 mmol/L Current Medications Medications (Trade) Dose Ordered Sig/Alexx Route Start Time Stop Time Status Last Admin Sodium Chloride 1,000 ml @ 1,000 mls/hr Q1H ONCE IV 9/6/25 07:00 01/02/25 07:59 DC 01/02/25 09:17 Amiodarone HCl 100 ml @ 600 mls/hr ONCE ONCE IV 01/02/25 07:00 01/02/25 07:09 DC 01/02/25 09:17 Amiodarone HCL/ Dextrose 200 ml @ 33.33 mls/ hr ONCE ONCE IV 01/02/25 09:45 01/02/25 15:45 01/02/25 09:35 Patient alert. Atrial fibrillation. Answering questions. History of coronary artery disease. He is on blood thinner. Started amiodarone. Continues to smoke cigarettes. Counseled patient on effects of smoking cigarettes for 15 minutes. Was given steroid for possible COPD. Hold breathing treatment because of his tachyarrhythmia. Explained to the patient. Continue monitoring. Time of 1ST Reevaluation: 07:30 Reevaluation 1ST: Unchanged Patient Education/Counseling: Diagnosis, Treatment, Prognosis Family Education/Counseling: No Family Present SEPSIS Sepsis Screen Physician Orders Electrocardigram (01/02/25 06:53) Electrocardigram (01/02/25 07:53) Electrocardigram (01/02/25 09:53) Chest Portable (01/02/25 07:00) Amiodarone 360mg/200ml Premix (Nexterone (01/02/25 13:15) Amiodarone 360mg/200ml Premix (Nexterone (01/02/25 09:45) Vital Signs Date Time Temp Pulse Resp B/P (MAP) Pulse Ox O2 Delivery O2 Flow Rate FiO2 01/02/25 10:29 77 01/02/25 09:00 140 20 96 Room Air* 0 21 01/02/25 09:00 97.7 140 20 137/73 (94) 96 97.7 01/02/25 07:57 152 01/02/25 07:14 97.7 145 18 148/85 95 97.7 01/02/25 07:06 148 01/02/25 06:54 148 Laboratory Tests Test 01/02/25 07:04 White Blood Count 8.6 10^3/uL (4.4-10.8) Medications Medications Dose Ordered Sig/Alexx Route Start Time Stop Time Status Last Admin Dose Admin Amiodarone HCl 100 ml @ 600 mls/hr ONCE ONCE IV 01/02/25 07:00 01/02/25 07:09 DC 01/02/25 09:17 Amiodarone HCL/ Dextrose 200 ml @ 33.33 mls/ hr ONCE ONCE IV 01/02/25 09:45 01/02/25 15:45 01/02/25 09:35 Sodium Chloride 1,000 ml @ 1,000 mls/hr Q1H ONCE IV 01/02/25 07:00 01/02/25 07:59 DC 01/02/25 09:17 Departure 1 Departure Time of Disposition: 07:09 Impression: Primary Impression: Atrial fibrillation/flutter Additional Impression: NSTEMI (non-ST elevated myocardial infarction) Disposition: ADMITTED INPATIENT Admit to: ICU Condition: Guarded Critical Care Note Critical Care Time?: Yes (90 min-critical care time only) Stability Stability form required: No Heart Score Heart Score: Heart Score Response (Comments) Value History Slightly Suspicious 0 EKG Normal 0 Age 45-64 1 Risk Factors >3 or Hx ASHD 2 Troponin >3 x's Normal limit 2 Total 5 I personally scribed for ASHKAN RODRIGUEZ MD ([email or web address]) on 01/02/25 at 07:06. Electronically submitted by Isaias Carrasco ([email or web address]). ASHKAN RODRIGUEZ MD Jan 02, 2025 07:06
[2025-01-02 07:14] LABS: Hematocrit 44.3 % (41.0-53.0); Hemoglobin 15.6 g/dL (13.5-17.5); Mean Corpuscular Hemoglobin 32.3 pg (28.0-32.0); Mean Corpuscular Volume 91.8 fL (80.0-100.0); Nucleated Red Blood Cells % 0.0 %
[2025-01-02 07:34] LABS: Alanine Aminotransferase 29 U/L (7-40); Albumin 4.1 g/dL (3.2-4.8); Alkaline Phosphatase 90 U/L (46-116); Anion Gap 16 (5-15); BUN/Creatinine Ratio 13.7 (10.0-20.0); Blood Urea Nitrogen 14 mg/dL (9-23); Calcium 9.6 mg/dL (8.7-10.4); Carbon Dioxide 20 mmol/L (20-31); Chloride 106 mmol/L (98-107); Potassium 4.1 mmol/L (3.5-5.1); Sodium 142 mmol/L (136-145); Total Protein 6.3 g/dL (5.7-8.2)
--- NOTE | 2025-01-02 07:34 | DVH ---
XY CHEST PORTABLE, HISTORY: sob COMPARISON: CHEST PORTABLE on DOS: 03/28/22, CXRP on DOS: 03/28/22, CHEST PORTABLE on DOS: 02/12/22 CHEST PORTABLE on DOS: 03/28/22, CXRP on DOS: 03/28/22, CHEST PORTABLE on DOS: 02/12/22 TECHNICAL DATA: 1 view of the chest was obtained. FINDINGS: Lines and tubes: None Cardiomediastinal silhouette: normal Pulmonary vasculature: normal Lung expansion: normal Lung airspace: normal Lung interstitium: normal Pleura: normal Pneumothorax: no Bones: Unremarkable Other: no IMPRESSION: No acute intrathoracic abnormality.
[2025-01-02 07:35] LABS: Bilirubin, Total 1.1 mg/dL (0.2-1.0); Glucose 239 mg/dL (74-106)
[2025-01-02] MEDS: AMIODARONE BOLUS KIT 100 ML IV ONE (09:17)
[2025-01-02] MEDS: SODIUM CHLORIDE 0.9% 1,000 ML IV ONE ×2 (09:17→11:52)
[2025-01-02] MEDS: AMIODARONE 360mg/200mL PREMIX 200 ML IV ONE (09:35)
[2025-01-02] MEDS ORDERED: HYDROcodone-ACET 5/325MG TAB PO PRN (11:15)
[2025-01-02] MEDS ORDERED: ACETAMINOPHEN 325 MG TAB PO PRN (11:15)
[2025-01-02] MEDS ORDERED: DEXTROSE (50%) 50ML SYRG IV PRN (11:15)
[2025-01-02] MEDS ORDERED: NITROGLYCERIN 0.4 MG SL TAB SL PRN (11:15)
[2025-01-02] MEDS ORDERED: MORPHINE SULFATE INJ 2 MG/ml SYRG IV PRN (11:15)
[2025-01-02] MEDS: ACCU-CHEK COMFORT CURVE STRIP VI SCH (11:52)
[2025-01-02] MEDS: InsuLIN REG 1unit/0.01ml Soln (100units/ml) SC SCH (11:54)
--- NOTE | 2025-01-02 12:25 | DVHHP2 ---
History of Present Illness Reason for Visit: Chest pain likely due to uncontrolled atrial fibrillation History of Present Illness This is a 49-year-old male with history of AFib, CAD, [place], PTCA x3, hypertension, hyperlipidemia, DM presents to ED with chief complaint of chest pain associated with shortness of breaths that started this morning. Upon evaluation the patient comments on having similar symptoms when he had a heart attack requiring PTCA in the past. He is currently on blood thinners in which has been compliant in taking. The patient denies recent life stressors, consumption of caffeinated/energy drinks, and recent injury or trauma to his chest. The patient is currently on amiodarone as this was started in the ER due to uncontrolled atrial fibrillation rate greater than 150, currently converted to sinus rhythm 75. The patient reports feeling much better as compared to earlier when heart rate was found to be elevated. He is concerned about his symptoms and would like to be further evaluated and treated. The patient will be admitted under hospitalist care to the telemetry unit for continuous monitoring. The patient denies fever, chills, headache, dizziness, palpitation, nausea, vomiting, abdominal pain, diarrhea, constipation and other associated symptoms. The plan has been discussed with the patient and primary RN in which all questions concerns have been addressed Cardiovascular: AFIB, CAD, HTN, [place], hyperipidemia Endocrine: Diabetes Past Surgical History: Hernia Repair Past Surgical History PTCA x3 Smoke: <1 pack per day ALCOHOL: none Drugs: None Lives: with Family Domestic Violence: Neg Review of Systems Respiratory: Shortness of breath Cardiovascular: Chest Pain Allergies: Coded Allergies: NO KNOWN ALLERGIES (Unverified , 11/24/17) Medications Current Medications Medications Dose Ordered Sig/Alexx Route Start Time Stop Time Status Last Admin Dose Admin Amiodarone HCL/ Dextrose 200 ml @ 16.66 mls/ hr Q12H IV 01/02/25 13:15 Sodium Chloride 1,000 ml @ 60 mls/hr [id number] IV 01/02/25 18:09 Acetaminophen/ Hydrocodone Bitart 1 tab Q4HP PRN PO 01/02/25 11:15 Acetaminophen 650 mg Q6HP PRN PO 01/02/25 11:15 Nitroglycerin 0.4 mg Q5MINP PRN SL 01/02/25 11:15 Morphine Sulfate 2 mg Q30M PRN IV 01/02/25 11:15 Diagnostic Test (Pha) 1 strip ACHS 01/02/25 11:30 01/02/25 11:52 1 STRIP Insulin Human Regular ACHS SC 01/02/25 11:30 01/02/25 11:54 4 UNITS Dextrose 50 ml UD PRN IV 01/02/25 11:15 Clopidogrel Bisulfate 75 mg DAILY PO 01/03/25 10:00 EZETIMIBE 10 mg DAILY PO 01/03/25 10:00 Tamsulosin HCl 0.4 mg QPM PO 01/02/25 18:00 Atorvastatin Calcium 40 mg HS PO 01/02/25 22:00 Exam Vital Signs Vital Signs Date Time Temp Pulse Resp B/P (MAP) Pulse Ox O2 Delivery O2 Flow Rate FiO2 01/02/25 10:29 77 01/02/25 09:00 20 96 Room Air* 0 21 01/02/25 09:00 97.7 137/73 (94) 97.7 General Appearance: Alert, Oriented X3, Cooperative, No acute distress HEENT: Atraumatic, PERRLA, Mucous membr. moist/pink Respiratory: Clear to auscultation, Normal air movement Cardiovascular: Normal S1, Normal S2, No murmurs Abdominal: Normal bowel sounds, Soft, No tenderness, No hepatospenomegaly, No masses Extremities: No clubbing, No cyanosis, No edema, Normal pulses, No tenderness/swelling Skin: No rashes, No breakdown Neuro: Normal gait, Normal speech, Strength at 5/5 X4 ext, Normal tone, Sensation intact, Cranial nerves 3-12 NL, Reflexes 2+ Psych/Mental Status: Mental status NL, Mood NL Labs/Xrays Labs Test 01/02/25 11:50 01/02/25 09:55 01/02/25 07:04 Range/Units POC Glucose 210 H 70-106 mg/dl Troponin I High Sensitivity 123 *H </=54 ng/L White Blood Count 8.6 4.4-10.8 10^3/uL Red Blood Count 4.83 4.5-5.90 10^6/uL Hemoglobin 15.6 13.5-17.5 g/dL Hematocrit 44.3 41.0-53.0 % Mean Corpuscular Volume 91.8 80.0-100.0 fL Mean Corpuscular Hemoglobin 32.3 H 28.0-32.0 pg Mean Corpuscular Hemoglobin Concent 35.2 32.0-36.0 g/dL Red Cell Distribution Width 12.5 11.8-14.3 % Platelet Count 195 140-450 10^3/uL Mean Platelet Volume 9.0 6.9-10.8 fL Neutrophils (%) (Auto) 50.2 37.0-80.0 % Lymphocytes (%) (Auto) 33.9 10.0-50.0 % Monocytes (%) (Auto) 11.9 0.0-12.0 % Eosinophils (%) (Auto) 3.2 0.0-7.0 % Basophils (%) (Auto) 0.8 0.0-2.0 % Neutrophils # (Auto) 4.3 1.6-8.6 10 ^3/uL Lymphocytes # (Auto) 2.9 0.4-5.4 10 ^3/uL Monocytes # (Auto) 1.0 0-1.3 10 ^3/uL Eosinophils # (Auto) 0.3 0-0.8 10 ^3/uL Basophils # (Auto) 0.1 0-0.2 10 ^3/uL Nucleated Red Blood Cells 0.0 % Sodium Level 142 136-145 mmol/L Potassium Level 4.1 3.5-5.1 mmol/L Chloride Level 106 98-107 mmol/L Carbon Dioxide Level 20 20-31 mmol/L Anion Gap 16 H 5-15 Blood Urea Nitrogen 14 9-23 mg/dL Creatinine 1.02 0.700-1.30 mg/dL Glomerular Filtration Rate Calc 89 >90 mL/min BUN/Creatinine Ratio 13.7 10.0-20.0 Serum Glucose 239 H 74-106 mg/dL Calcium Level 9.6 8.7-10.4 mg/dL Total Bilirubin 1.1 H 0.2-1.0 mg/dL Aspartate Amino Transferase (AST) 20 13-40 U/L Alanine Aminotransferase (ALT) 29 7-40 U/L Alkaline Phosphatase 90 46-116 U/L Total Protein 6.3 5.7-8.2 g/dL Albumin 4.1 3.2-4.8 g/dL Beta-Hydroxybutyric Acid 2.520 H < 0.4 mmol/L \ SEPSIS Sepsis Screen Date sepsis recognized/suspect: Jan 02, 2025 Time Sepsis recognized/suspect: 718 Recent Procedure: No On Antibiotic Therapy: No Respiratory Rate >20: No Heart Rate >90: No Temp<36 C (96.8 F) or >38.3 C: No SBP <90 or MAP <65 mmHG: No New Acute Mental Status Change: No Is the patient on CPAP, BIPAP,: No Physician Orders Electrocardigram (01/02/25 06:53) Electrocardigram (01/02/25 07:53) Electrocardigram (01/02/25 09:53) Chest Portable (01/02/25 07:00) Amiodarone 360mg/200ml Premix (Nexterone (01/02/25 13:15) Amiodarone 360mg/200ml Premix (Nexterone (01/02/25 09:45) Admit (01/02/25 11:14) 2 Gm Sodium Diet (01/02/25 Lunch) Sodium Chloride 0.9% (01/02/25 18:09) Hydrocodone-Acet 5/325mg Tab ([place] 5/32 (01/02/25 11:15) Complete Blood Count (01/03/25 04:00) Comprehensive Metabolic Panel (01/03/25 04:00) Echo 2d Mode Cardiac Dop (01/02/25 11:14) Condition: Fair (01/02/25 11:14) Acetaminophen Tablet (Tylenol Tablet) (01/02/25 11:15) Bedrest With Bathroom Privileg (01/02/25 11:14) Nitroglycerin Sublingual (Ntrostat Subli (01/02/25 11:15) Morphine Sulfate Injection (01/02/25 11:15) Stat Ekg For Chest Pain (01/02/25 11:14) Notify Md Of Changes From Base (01/02/25 11:14) Easement Man For 24 Hours (01/02/25 11:14) Emergency Dysrhythmia Protocol (01/02/25 11:14) Rhythm Strips Once Every Shift (01/02/25 11:14) Oxygen By Nasal Cannula (01/02/25 11:14) Glucose Blood (Accu-Chek Comfort Curve T (01/02/25 11:30) Insulin R (Human) (Insulin R) (01/02/25 11:30) Dextrose 50% Syringe (01/02/25 11:15) Sodium Chloride 0.9% (01/02/25 11:30) Clopidogrel Bisulfate (Plavix) (01/03/25 10:00) Ezetimibe (Zetia) (01/03/25 10:00) Atorvastatin (Lipitor) (01/02/25 22:00) Tamsulosin Hydrochloride (Flomax) (01/02/25 18:00) Vital Signs Date Time Temp Pulse Resp B/P (MAP) Pulse Ox O2 Delivery O2 Flow Rate FiO2 01/02/25 10:29 77 01/02/25 09:00 140 20 96 Room Air* 0 21 01/02/25 09:00 97.7 140 20 137/73 (94) 96 97.7 01/02/25 07:57 152 01/02/25 07:14 97.7 145 18 148/85 95 97.7 01/02/25 07:06 148 01/02/25 06:54 148 Laboratory Tests Test 01/02/25 07:04 White Blood Count 8.6 10^3/uL (4.4-10.8) Medications Medications Dose Ordered Sig/Alexx Route Start Time Stop Time Status Last Admin Dose Admin Amiodarone HCl 100 ml @ 600 mls/hr ONCE ONCE IV 01/02/25 07:00 01/02/25 07:09 DC 01/02/25 09:17 600 MLS/HR Amiodarone HCL/ Dextrose 200 ml @ 33.33 mls/ hr ONCE ONCE IV 01/02/25 09:45 01/02/25 15:45 01/02/25 09:35 33.33 MLS/HR Diagnostic Test (Pha) 1 strip ACHS 01/02/25 11:30 01/02/25 11:52 1 STRIP Insulin Human Regular ACHS SC 01/02/25 11:30 01/02/25 11:54 4 UNITS Sodium Chloride 1,000 ml @ 150 mls/hr Q6H40M ONCE IV 01/02/25 11:30 01/02/25 18:09 01/02/25 11:52 150 MLS/HR Sodium Chloride 1,000 ml @ 1,000 mls/hr Q1H ONCE IV 01/02/25 07:00 01/02/25 07:59 DC 01/02/25 09:17 1,000 MLS/HR Reassessment Post Fluid Pulse Location: Radial Pulse Strength: Normal Capillary Refill Exam: < 3 seconds Skin Temperature: Warm Skin Moisture: Moist Skin Tugor: WNL Skin Color: WNL Fingernail Color: WNL Assessment/Plan Assessment/Plan Chest pain likely due to uncontrolled atrial fibrillation---patient admitted to ED with chief complaint of chest pain associated with shortness of breaths that started this morning History of AFib, PA, PTCA x3, CAD, DM, hypertension and hyperlipidemia Similar symptoms when he had during his [place] in which PTCA were placed Currently taking blood thinner Plavix and compliant Denies illicit drug use, consumption of caffeinated/energy drinks and injury or trauma to chest Denies currently seeing a timber management technician Reviewed CBC which is normal Reviewed BMP shows elevated beta hydroxy acid 2.5, T bili 1.1, BG 239 and gap 16 Reviewed chest x-ray which is normal Reviewed 12 lead EKG before and after amiodarone Cardiac enzyme negative x1 pending 2nd and 3rd result Echocardiogram pending IV amiodarone per protocol IV hydration Continue Plavix as prescribed Consider to consult timber management technician for further evaluation and recommendation Uncontrolled type 2 DM Patient reports taking metformin and is compliant Regular insulin mild SS a.c. and HS Accu-Cheks per protocol 1800 ADA diet Hypertension Denies taking any antihypertensive agents Start lisinopril 5 mg daily Continue to monitor Reconcile home med DVT prophylaxis not indicated patient ambulatory PUD prophylaxis not indicated no history of GERD Labs in a.m. Discussed plan of care with the patient in which all questions concerns have been addressed Plan discussed with: Patient My Orders Orders - AMALIA DO Procedure Category Date Status Time Admit ADMIT 01/02/25 Transmitted 11:14 2 Gm Sodium Diet DIET 01/02/25 Transmitted Lunch Sodium Chloride 0.9% PHA 01/02/25 In Process 18:09 Hydrocodone-Acet PHA 01/02/25 In Process 5/325mg Tab ([place] 11:15 Complete Blood Count LAB 01/03/25 Verified 04:00 Comprehensive LAB 01/03/25 Verified Metabolic Panel 04:00 Echo 2d Mode Cardiac US 01/02/25 Logged DOP 11:14 Condition: Fair [place] 01/02/25 In Process 11:14 Acetaminophen Tablet PHA 01/02/25 In Process (Tylenol Tablet) 11:15 Bedrest With Bathroom [facility] 01/02/25 In Process Privileg 11:14 Nitroglycerin PHA 01/02/25 In Process Sublingual (Ntrostat 11:15 Morphine Sulfate PHA 01/02/25 In Process Injection 11:15 Stat Ekg For Chest [facility] 01/02/25 In Process Pain 11:14 Notify Md Of Changes [facility] 01/02/25 In Process From Base 11:14 Easement Man For [facility] 01/02/25 In Process 24 Hours 11:14 Emergency Dysrhythmia [facility] 01/02/25 In Process Protocol 11:14 Rhythm Strips Once [facility] 01/02/25 In Process Every Shift 11:14 Oxygen By Nasal RT 01/02/25 Transmitted Cannula 11:14 Glucose Blood PHA 01/02/25 In Process (Accu-Chek Comfort 11:30 Insulin R (Human) PHA 01/02/25 In Process (Insulin R) 11:30 Dextrose 50% Syringe PHA 01/02/25 In Process 11:15 Sodium Chloride 0.9% PHA 01/02/25 In Process 11:30 Clopidogrel Bisulfate PHA 01/03/25 In Process (Plavix) 10:00 Ezetimibe (Zetia) PHA 01/03/25 In Process 10:00 Atorvastatin (Lipitor) PHA 01/02/25 In Process 22:00 Tamsulosin PHA 01/02/25 In Process Hydrochloride (Flomax) 18:00 Date of Service: Jan 02, 2025 Billing Provider: AMALIA DO Common Visit Codes: [id number] INP/OBS CARE (HIGH) AMALIA DOP Jan 02, 2025 12:25
[2025-01-02] MEDS ORDERED: TAMS-35 PO (12:57)
[2025-01-02] MEDS ORDERED: AMIO200T33 PO (13:02)
[2025-01-02] MEDS ORDERED: RIV15T PO (13:03)
[2025-01-02] MEDS ORDERED: EZET10TA22 PO (13:04)
[2025-01-02] MEDS ORDERED: AMIODARONE 360mg/200mL PREMIX 200 ML IV SCH (13:15)
[2025-01-02] MEDS: AMIODARONE 360mg/200mL PREMIX 200 ML IV SCH (15:18)
[2025-01-02] MEDS: TAMSULOSIN HYDROCHLORIDE 0.4 MG CAP PO SCH (17:14)
[2025-01-02] MEDS: SODIUM CHLORIDE 0.9% 1,000 ML IV SCH (17:25)
[2025-01-02] MEDS: ATORVASTATIN 20 MG TAB PO SCH (21:30)
[2025-01-03] VITALS (8 sets, daily range): BP systolic 124–153; BP diastolic 59–75; PULSE 60–72; RESP 16–18; TEMP 97.7–98.6; O2SAT 95–97
[2025-01-03 07:53] LABS: Hematocrit 36.1 % (41.0-53.0); Hemoglobin 12.8 g/dL (13.5-17.5); Mean Corpuscular Hemoglobin 32.2 pg (28.0-32.0); Mean Corpuscular Volume 91.0 fL (80.0-100.0); Nucleated Red Blood Cells % 0.0 %
[2025-01-03 08:02] LABS: Alanine Aminotransferase 23 U/L (7-40); Alkaline Phosphatase 74 U/L (46-116); Anion Gap 6 (5-15); BUN/Creatinine Ratio 17.9 (10.0-20.0); Blood Urea Nitrogen 14 mg/dL (9-23); Carbon Dioxide 24 mmol/L (20-31); Potassium 4.5 mmol/L (3.5-5.1); Sodium 143 mmol/L (136-145)
[2025-01-03 08:03] LABS: Bilirubin, Total 0.4 mg/dL (0.2-1.0)
[2025-01-03 08:05] LABS: Albumin 3.2 g/dL (3.2-4.8); Calcium 8.6 mg/dL (8.7-10.4); Chloride 113 mmol/L (98-107); Glucose 177 mg/dL (74-106); Total Protein 5.0 g/dL (5.7-8.2)
[2025-01-03] MEDS: CLOPIDOGREL BISULFATE 75 MG TAB PO SCH (10:35)
[2025-01-03] MEDS: EZETIMIBE 10 MG TAB PO SCH (10:35)
--- NOTE | 2025-01-03 11:28 | DVHPN2 ---
Subjective The patient is seen and examined at bedside. On amiodarone drip Reviewed: Care Plan, H&P, Labs, Medications, Previous Orders, Radiology Changes from previous H/P or p: No Changes Cardiovascular: Chest Pain Respiratory: Shortness of breath Objective Vitals Vital Signs Date Time Temp Pulse Resp B/P (MAP) Pulse Ox O2 Delivery O2 Flow Rate FiO2 01/03/25 08:51 97.7 68 17 136/73 (94) 97 97.7 01/03/25 08:00 Room Air* 0 21 Intake/Output Intake and Output 01/03/25 07:00 Intake Total 3940 ml Output Total 1600 ml Balance 2340 ml Intake Oral 1040 ml IV Total 2900 ml Output Urine Total 1600 ml # Bowel Movements 1 General Appearance: Alert, Oriented X3, Cooperative, No acute distress HEENT: Atraumatic, PERRLA, EOMI, Mucous membr. moist/pink Neck: Supple Lungs: Clear to auscultation, Normal air movement Cardiovascular: Regular rate, Normal S1, Normal S2, No murmurs, Gallops, Rubs Abdomen: Normal bowel sounds, Soft, No tenderness Neuro: Cranial nerves 3-12 NL Psych/Mental Status: Mental status NL Medications Current Medications Medications Dose Ordered Sig/Alexx Route Start Time Stop Time Status Last Admin Dose Admin Sodium Chloride 1,000 ml @ 60 mls/hr [id number] IV 01/02/25 18:09 01/03/25 04:16 60 MLS/HR Acetaminophen/ Hydrocodone Bitart 1 tab Q4HP PRN PO 01/02/25 11:15 Acetaminophen 650 mg Q6HP PRN PO 01/02/25 11:15 Nitroglycerin 0.4 mg Q5MINP PRN SL 01/02/25 11:15 Morphine Sulfate 2 mg Q30M PRN IV 01/02/25 11:15 Diagnostic Test (Pha) 1 strip ACHS 01/02/25 11:30 01/03/25 11:25 1 STRIP Insulin Human Regular ACHS SC 01/02/25 11:30 01/03/25 06:33 4 UNITS Dextrose 50 ml UD PRN IV 01/02/25 11:15 Clopidogrel Bisulfate 75 mg DAILY PO 01/03/25 10:00 01/03/25 10:35 75 MG EZETIMIBE 10 mg DAILY PO 01/03/25 10:00 01/03/25 10:35 10 MG Tamsulosin HCl 0.4 mg QPM PO 01/02/25 18:00 01/02/25 17:14 0.4 MG Atorvastatin Calcium 40 mg HS PO 01/02/25 22:00 01/02/25 21:30 40 MG Amiodarone HCL/ Dextrose 200 ml @ 16.66 mls/ hr Q12H IV 01/02/25 15:36 01/03/25 03:02 16.66 MLS/HR Laboratory Results Laboratory Tests 01/03/25 05:50 Chemistry Test 01/03/25 05:50 Albumin 3.2 g/dL (3.2-4.8) Calcium Level 8.6 mg/dL (8.7-10.4) L Total Protein 5.0 g/dL (5.7-8.2) L LFT Test 01/03/25 05:50 Alanine Aminotransferase (ALT) 23 U/L (7-40) Alkaline Phosphatase 74 U/L (46-116) Aspartate Amino Transferase (AST) 19 U/L (13-40) Total Bilirubin 0.4 mg/dL (0.2-1.0) Labs and/or images reviewed: Labs reviewed by me Assessment/Plan Assessment/Plan Chest pain likely due to uncontrolled atrial fibrillation History of AFib, ID, PTCA x3, CAD, DM, hypertension and hyperlipidemia Similar symptoms when he had during his ID in which PTCA were placed Currently taking blood thinner Plavix and compliant Denies illicit drug use, consumption of caffeinated/energy drinks and injury or trauma to chest Denies currently seeing a electric clock mechanic Cardiac enzyme negative x1 pending 2nd and 3rd result Echocardiogram pending IV amiodarone per protocol IV hydration Continue Plavix as prescribed Consider to consult electric clock mechanic for further evaluation and recommendation Uncontrolled type 2 DM Patient reports taking metformin and is compliant Regular insulin mild SS a.c. and HS Accu-Cheks per protocol 1800 ADA diet Hypertension Denies taking any antihypertensive agents Start lisinopril 5 mg daily Continue to monitor Reconcile home med DVT prophylaxis not indicated patient ambulatory PUD prophylaxis not indicated no history of GERD This medical document was created using an electronic medical record system with [employer] direct computerized dictation system. Although this document has been carefully reviewed, there may still be some phonetic and typographical errors. These areas are purely typographical due to imperfections of the software programs, and do not reflect any compromise in the patient's medical care. Plan discussed with: Patient Date of Service: Jan 03, 2025 Billing Provider: KEVIN ESCALANTE MD Common Visit Codes: [id number] INP/OBS CARE(HIGH) KEVIN ESCALANTE MD Jan 03, 2025 11:28
--- NOTE | 2025-01-03 19:45 | ECG ---
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
--- NOTE | 2025-01-03 19:54 | ECG ---
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
--- NOTE | 2025-01-03 20:19 | DVHSR ---
APPROVED REPORT EXAM: Two-dimensional and M-mode echocardiogram with Doppler and color Doppler. Blood Pressure: 136/73 mmHg INDICATION Chest Pain RISK FACTORS Height: 5' 8", Weight: 150 DIMENSIONS LVDd4.4 (3.8-5.7cm)LA (2D)4.1 (1.9-4.0cm)Aortic Root3.5 (2.0-3.7cm) LVDs2.8 (2.5-4.0cm)LA (MM) (1.9-4.0cm)Aortic Cusp Exc2.0 (1.5-2.0cm) EF (%) 65.0 (55-70%)Rt. Atrium3.8 (1.9-4.0cm)Asc. Aorta cm IVSd1.1 (0.7-1.1cm)RV (D) (1.8-2.4cm) PWd1.0 (0.7-1.1cm) Mitral Valve MitralMitral Stenosis E wave1.00m/sMV Mean GR.mmHg A wave0.70m/sMV Peak GR.mmHg E/A ratio1.42D MVAcm2 Aortic Valve Aortic ValveAortic Stenosis V11.60m/Iveth Mean GR.5mmHg V21.60m/Iveth Peak GR.11mmHg LVOT Diameter2.5 (1.8-2.4cm)Doppler AVA4.91cm2 Pulmonic Valve V20.80m/s Conclusion NORMAL LV EF AND IS 65% SLIGHTLY DILATED LA NORMAL VALVES NORMAL RV FUNCTION NO EFFUSION
[2025-01-04] VITALS (8 sets, daily range): BP systolic 126–146; BP diastolic 59–75; PULSE 59–72; RESP 15–20; TEMP 97.7–98.5; O2SAT 94–96
--- NOTE | 2025-01-04 07:18 | ECG ---
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
--- NOTE | 2025-01-04 12:17 | DVHPN2 ---
Subjective The patient is seen and examined at bedside. On amiodarone drip Reviewed: Care Plan, H&P, Labs, Medications, Previous Orders, Radiology Changes from previous H/P or p: No Changes Cardiovascular: Chest Pain Respiratory: Shortness of breath Objective Vitals Vital Signs Date Time Temp Pulse Resp B/P (MAP) Pulse Ox O2 Delivery O2 Flow Rate FiO2 01/04/25 09:00 97.7 66 17 133/71 (91) 96 97.7 01/03/25 20:00 Room Air* 0 21 Intake/Output Intake and Output 01/04/25 07:00 Intake Total 2440 ml Output Total 900 ml Balance 1540 ml Intake Oral 2140 ml IV Total 300 ml Output Urine Total 900 ml # Voids 3 # Bowel Movements 2 General Appearance: Alert, Oriented X3, Cooperative, No acute distress HEENT: Atraumatic, PERRLA, EOMI, Mucous membr. moist/pink Neck: Supple Lungs: Clear to auscultation, Normal air movement Cardiovascular: Regular rate, Normal S1, Normal S2, No murmurs, Gallops, Rubs Abdomen: Normal bowel sounds, Soft, No tenderness Neuro: Cranial nerves 3-12 NL Psych/Mental Status: Mental status NL Medications Current Medications Medications Dose Ordered Sig/Alexx Route Start Time Stop Time Status Last Admin Dose Admin Sodium Chloride 1,000 ml @ 60 mls/hr [id number] IV 01/02/25 18:09 01/03/25 21:40 60 MLS/HR Acetaminophen/ Hydrocodone Bitart 1 tab Q4HP PRN PO 01/02/25 11:15 Acetaminophen 650 mg Q6HP PRN PO 01/02/25 11:15 Nitroglycerin 0.4 mg Q5MINP PRN SL 01/02/25 11:15 Morphine Sulfate 2 mg Q30M PRN IV 01/02/25 11:15 Diagnostic Test (Pha) 1 strip ACHS 01/02/25 11:30 01/04/25 10:58 1 STRIP Insulin Human Regular ACHS SC 01/02/25 11:30 01/04/25 11:32 4 UNITS Dextrose 50 ml UD PRN IV 01/02/25 11:15 Clopidogrel Bisulfate 75 mg DAILY PO 01/03/25 10:00 01/04/25 09:22 75 MG EZETIMIBE 10 mg DAILY PO 01/03/25 10:00 01/04/25 09:22 10 MG Tamsulosin HCl 0.4 mg QPM PO 01/02/25 18:00 01/03/25 18:05 0.4 MG Atorvastatin Calcium 40 mg HS PO 01/02/25 22:00 01/03/25 21:41 40 MG Amiodarone HCL/ Dextrose 200 ml @ 16.66 mls/ hr Q12H IV 01/02/25 15:36 01/04/25 03:00 16.66 MLS/HR Laboratory Results Laboratory Tests 01/03/25 05:50 Labs and/or images reviewed: Labs reviewed by me Assessment/Plan Assessment/Plan Chest pain likely due to uncontrolled atrial fibrillation History of AFib, [place], PTCA x3, CAD, DM, hypertension and hyperlipidemia Similar symptoms when he had during his MD in which PTCA were placed Currently taking blood thinner Plavix and compliant Denies illicit drug use, consumption of caffeinated/energy drinks and injury or trauma to chest Denies currently seeing a coke oven mason Cardiac enzyme negative x1 pending 2nd and 3rd result Echocardiogram pending IV amiodarone per protocol IV hydration Continue Plavix as prescribed Consider to consult coke oven mason for further evaluation and recommendation Uncontrolled type 2 DM Patient reports taking metformin and is compliant Regular insulin mild SS a.c. and HS Accu-Cheks per protocol 1800 ADA diet Hypertension Denies taking any antihypertensive agents Start lisinopril 5 mg daily Continue to monitor Reconcile home med DVT prophylaxis not indicated patient ambulatory PUD prophylaxis not indicated no history of GERD This medical document was created using an electronic medical record system with [employer] direct computerized dictation system. Although this document has been carefully reviewed, there may still be some phonetic and typographical errors. These areas are purely typographical due to imperfections of the software programs, and do not reflect any compromise in the patient's medical care. Plan discussed with: Patient Date of Service: Jan 04, 2025 Billing Provider: KEVIN ESCALANTE MD Common Visit Codes: [id number] INP/OBS CARE(HIGH) KEVIN ESCALANTE MD Jan 04, 2025 12:17
[2025-01-05 01:00] VITALS: BP 137/71; PULSE 65; RESP 20; TEMP 97.9; O2SAT 97
[2025-01-05 05:00] VITALS: BP 136/69; PULSE 65; RESP 20; TEMP 98.2; O2SAT 96
[2025-01-05 08:00] VITALS: PULSE 64
--- NOTE | 2025-01-05 11:28 | DVHPN2 ---
Subjective The patient is seen and examined at bedside. On amiodarone drip Reviewed: Care Plan, H&P, Labs, Medications, Previous Orders, Radiology Cardiovascular: Chest Pain Respiratory: Shortness of breath Objective Vitals Vital Signs Date Time Temp Pulse Resp B/P (MAP) Pulse Ox O2 Delivery O2 Flow Rate FiO2 01/05/25 05:00 98.2 65 20 136/69 (91) 96 98.2 01/04/25 20:00 Room Air* 0 21 Intake/Output Intake and Output 01/05/25 06:59 Intake Total 1340 ml Balance 1340 ml Intake Oral 940 ml IV Total 400 ml # Voids 2 General Appearance: Alert, Oriented X3, Cooperative, No acute distress HEENT: Atraumatic, PERRLA, EOMI, Mucous membr. moist/pink Neck: Supple Lungs: Clear to auscultation, Normal air movement Cardiovascular: Regular rate, Normal S1, Normal S2, No murmurs, Gallops, Rubs Abdomen: Normal bowel sounds, Soft, No tenderness Neuro: Cranial nerves 3-12 NL Psych/Mental Status: Mental status NL Medications Current Medications Medications Dose Ordered Sig/Alexx Route Start Time Stop Time Status Last Admin Dose Admin Sodium Chloride 1,000 ml @ 60 mls/hr [id number] IV 01/02/25 18:09 01/03/25 21:40 60 MLS/HR Acetaminophen/ Hydrocodone Bitart 1 tab Q4HP PRN PO 01/02/25 11:15 Acetaminophen 650 mg Q6HP PRN PO 01/02/25 11:15 Nitroglycerin 0.4 mg Q5MINP PRN SL 01/02/25 11:15 Morphine Sulfate 2 mg Q30M PRN IV 01/02/25 11:15 Diagnostic Test (Pha) 1 strip ACHS 01/02/25 11:30 01/05/25 10:53 1 STRIP Insulin Human Regular ACHS SC 01/02/25 11:30 01/05/25 11:11 4 UNITS Dextrose 50 ml UD PRN IV 01/02/25 11:15 Clopidogrel Bisulfate 75 mg DAILY PO 01/03/25 10:00 01/05/25 09:23 75 MG EZETIMIBE 10 mg DAILY PO 01/03/25 10:00 01/05/25 09:23 10 MG Tamsulosin HCl 0.4 mg QPM PO 01/02/25 18:00 01/04/25 17:15 0.4 MG Atorvastatin Calcium 40 mg HS PO 01/02/25 22:00 01/04/25 21:21 40 MG Amiodarone HCL/ Dextrose 200 ml @ 16.66 mls/ hr Q12H IV 01/02/25 15:36 01/05/25 05:35 16.66 MLS/HR Laboratory Results Laboratory Tests 01/03/25 05:50 Assessment/Plan Assessment/Plan Chest pain likely due to uncontrolled atrial fibrillation History of AFib, [place], PTCA x3, CAD, DM, hypertension and hyperlipidemia Similar symptoms when he had during his [place] in which PTCA were placed Currently taking blood thinner Plavix and compliant Denies illicit drug use, consumption of caffeinated/energy drinks and injury or trauma to chest Denies currently seeing a cleaning handyman Cardiac enzyme negative x1 pending 2nd and 3rd result Echocardiogram pending IV amiodarone per protocol IV hydration Continue Plavix as prescribed Consider to consult cleaning handyman for further evaluation and recommendation Uncontrolled type 2 DM Patient reports taking metformin and is compliant Regular insulin mild SS a.c. and HS Accu-Cheks per protocol 1800 ADA diet Hypertension Denies taking any antihypertensive agents Start lisinopril 5 mg daily Continue to monitor Reconcile home med DVT prophylaxis not indicated patient ambulatory PUD prophylaxis not indicated no history of GERD This medical document was created using an electronic medical record system with [employer] direct computerized dictation system. Although this document has been carefully reviewed, there may still be some phonetic and typographical errors. These areas are purely typographical due to imperfections of the software programs, and do not reflect any compromise in the patient's medical care. KEVIN ESCALANTE MD Jan 05, 2025 11:28
--- NOTE | 2025-01-05 12:27 | DVHDS2 ---
Discharge Summary Date of Admission Jan 02, 2025 at 11:14 Date of Discharge: Jan 05, 2025 Admitting Diagnosis Chest pain likely due to uncontrolled atrial fibrillation History of AFib, History of [place], with PTCA x3, CAD DM Hyperlipidemia Uncontrolled type 2 DM Hypertension Labs/Diagnostic Data: Laboratory Results Test 01/05/25 10:48 01/03/25 05:50 01/02/25 09:55 POC Glucose 240 mg/dl (70-106) White Blood Count 4.5 10^3/uL (4.4-10.8) Red Blood Count 3.97 10^6/uL (4.5-5.90) Hemoglobin 12.8 g/dL (13.5-17.5) Hematocrit 36.1 % (41.0-53.0) Mean Corpuscular Volume 91.0 fL (80.0-100.0) Mean Corpuscular Hemoglobin 32.2 pg (28.0-32.0) Mean Corpuscular Hemoglobin Concent 35.4 g/dL (32.0-36.0) Red Cell Distribution Width 12.4 % (11.8-14.3) Platelet Count 143 10^3/uL (140-450) Mean Platelet Volume 9.2 fL (6.9-10.8) Neutrophils (%) (Auto) 46.6 % (37.0-80.0) Lymphocytes (%) (Auto) 38.5 % (10.0-50.0) Monocytes (%) (Auto) 11.3 % (0.0-12.0) Eosinophils (%) (Auto) 3.1 % (0.0-7.0) Basophils (%) (Auto) 0.5 % (0.0-2.0) Neutrophils # (Auto) 2.1 10 ^3/uL (1.6-8.6) Lymphocytes # (Auto) 1.7 10 ^3/uL (0.4-5.4) Monocytes # (Auto) 0.5 10 ^3/uL (0-1.3) Eosinophils # (Auto) 0.1 10 ^3/uL (0-0.8) Basophils # (Auto) 0 10 ^3/uL (0-0.2) Nucleated Red Blood Cells 0.0 % Sodium Level 143 mmol/L (136-145) Potassium Level 4.5 mmol/L (3.5-5.1) Chloride Level 113 mmol/L (98-107) Carbon Dioxide Level 24 mmol/L (20-31) Anion Gap 6 (5-15) Blood Urea Nitrogen 14 mg/dL (9-23) Creatinine 0.78 mg/dL (0.700-1.30) Glomerular Filtration Rate Calc 108 mL/min (>90) BUN/Creatinine Ratio 17.9 (10.0-20.0) Serum Glucose 177 mg/dL (74-106) Calcium Level 8.6 mg/dL (8.7-10.4) Total Bilirubin 0.4 mg/dL (0.2-1.0) Aspartate Amino Transferase (AST) 19 U/L (13-40) Alanine Aminotransferase (ALT) 23 U/L (7-40) Alkaline Phosphatase 74 U/L (46-116) Total Protein 5.0 g/dL (5.7-8.2) Albumin 3.2 g/dL (3.2-4.8) Troponin I High Sensitivity 123 ng/L (</=54) Beta-Hydroxybutyric Acid 1.382 mmol/L (< 0.4) Other Laboratory Tests 01/03/25 05:50 Brief Hx & Hospital Course: This is a 49 years old male with past medical history of atrial fibrillation, coronary artery disease, NV, PTCA x3, hypertension, hyperlipidemia, diabetes came to emergency department because of shortness for breath and chest pain. The patient said his pain is similar to the symptoms he had a heart attack which required PTCA in the past. He compliant with his medication including blood thinning medication. He also on amiodarone 100 mg once per day. The patient was found to have atrial fibrillation with RVR The patient was started on amiodarone drip and subsequently was weaned off today. The patient amiodarone was switched back to oral medication. His heart rate back to normal AFib without RVR. Amiodarone was increased to 200 mg p.o. b.i.d.. Cardiology had see the patient and recommend no further workup. I am discharge the patient home today. Advised the patient to follow up with primary care physician 1-2 weeks. Follow up with his videographer per schedule. Activity as tolerated. Diet low-salt low-cholesterol, carb controlled diet Physical exam: HEENT: Normocephalic atraumatic pupils equal react to light and accommodation. Extraocular muscles intact, conjunctiva pink, oropharynx moist, no thrush, no exudate. Lymphatic: No lymphadenopathy Cardiovascular exam: S1, S2 was heard. No murmurs, rubs, gallops Lung: Clear on auscultation bilaterally, no wheeze, rale, rhonchi. GI: Abdominal soft, nondistended, nontenderness, positive bowel sounds. Extremity: No crepitus, cyanosis, edema. Pedal pulses present bilateral. Full range of motion. Skin: Normal turgor, no rash. Psych: Alert, oriented x3. Neurology: No focal deficits, cranial nerve II to XII grossly intact. This medical document was created using an electronic medical record system with [employer] dictation system. Although this document has been carefully reviewed, there may still be some phonetic and typographical errors. These areas are purely typographical due to imperfections of the software programs, and do not reflect any compromise in the patient's medical care. Condition at Discharge: Stable Final Diagnosis/Problems List Chest pain likely due to uncontrolled atrial fibrillation History of AFib, History of [place], with PTCA x3, CAD DM Hyperlipidemia Uncontrolled type 2 DM Hypertension Discharge Disposition: Home Discharge Instruct/Medications Scheduled Amiodarone Hcl (Amiodarone Hcl), 200 MG PO BID Atorvastatin Calcium (Atorvastatin Calcium), 1 TAB PO DAILY, (Reported) Clopidogrel Bisulfate (Clopidogrel), 1 TAB PO DAILYPRN, (Reported) Ezetimibe (Ezetimibe), 1 TAB PO DAILYPRN, (Reported) Ezetimibe (Zetia), Unknown Dose PO DAILY, (Reported) Metformin Hydrochloride (Metformin Hcl), 500 MG PO IBID, (Reported) Metformin Hydrochloride (Metformin Hcl), Unknown Dose PO IBID, (Reported) Rivaroxaban (Xarelto Tablet), Unknown Dose PO DAILY, (Reported) Tamsulosin Hcl (Tamsulosin Hcl), 1 CAP PO DAILYPRN, (Reported) Tamsulosin Hcl (Flomax), Unknown Dose PO DAILY, (Reported) Scheduled PRN Hydrocodone-Acetaminophen (Hydrocodone/Acetaminophen 10-325 mg), 1 PO TID PRN for MODERATE PAIN, (Reported) Miscellaneous Medications Semaglutide (Rybelsus), (Reported) Discontinued Medications Amiodarone Hcl (Amiodarone Hcl), Unknown Dose PO DAILY, (Reported) Discharge Statement: "Patient was advised to return to the ER or call 911 if any headaches, dizziness, shortness of breath, chest pain, abdominal pain, bleeding, fevers, or worsening of medical condition. Patient was counseled about treatment plan, medications, possible side effects, patientverbalized understanding. All questions were answered to the best of my ability. This discharge took greater then 30 minutes in planning, reviewing documentation, counseling the patient, and discussing with other team members." ASSESSMENT ASSESSMENT Assessment Date of Service: Jan 05, 2025 Billing Provider: KEVIN ESCALANTE MD Common Visit Codes: 48822-DXP/OBS DISCH DAY >30min KEVIN SECALANTE MD Jan 05, 2025 12:27
[2025-01-05] MEDS ORDERED: AMIO200T33 PO (12:28)
[2025-01-05 14:23] VITALS: BP 133/71; PULSE 66; RESP 17; TEMP 97.7; O2SAT 96
== END 2025-01-05 15:48 | disposition home or self-care (01) | DRG 282 ==
LOC: ER 06:53 → OVERFLOW 11:14 → TELE-WESTW 18:05
PROVIDERS: ADMIT Internal Medicine; ATTEND Internal Medicine
DX: I48.91 Unspecified atrial fibrillation (principal); I21.A1 Myocardial infarction type 2; I48.92 Unspecified atrial flutter; E11.65 Type 2 diabetes mellitus with hyperglycemia; I10 Essential (primary) hypertension; I25.10 Atherosclerotic heart disease of native coronary artery without angina pectoris; F17.210 Nicotine dependence, cigarettes, uncomplicated; E78.5 Hyperlipidemia, unspecified; Z98.61 Coronary angioplasty status; Z79.02 Long term (current) use of antithrombotics/antiplatelets; I25.2 Old myocardial infarction; Z71.6 Tobacco abuse counseling; Z79.84 Long term (current) use of oral hypoglycemic drugs
CPT/HCPCS: 36415; 71045; 80053; 82010; 82962; 84484; 85025; 93005; 93306; 96365; 99291; G0378; J1815